=== PATIENT | female | born 1945 | race Caucasian/White ===

== ENCOUNTER 2018-01-20 17:38 | Emergency (ER) | payer MEDICARE, OTHER ==
[~2018-01-20] VITALS: Ht 152.4 cm; Wt 56.5 kg
[~2018-01-20 17:38] MED LIST: ACTO150T PO; CETI10CH PO; CIPR500T4 PO; LOPE2TAB3 PO; PRED1 PO; PRIN5TAB PO; REST0.05 OU; ZOCO40TA PO
[2018-01-20 17:48] VITALS: BP 186/95; PULSE 94; RESP 18; TEMP 98.1; O2SAT 99
[2018-01-20] MEDS ORDERED: SIMV10TA PO (18:07)
[2018-01-20] MEDS ORDERED: ZYRTEC PO (18:07)
[2018-01-20] MEDS ORDERED: LISI-519 PO (18:07)
[2018-01-20] MEDS ORDERED: FLUO.25%O LEFT EYE (18:07)
[2018-01-20] MEDS ORDERED: ASPI81CH6 CHEW (18:07)
[2018-01-20] MEDS ORDERED: RISE1TAB13 PO (18:07)
[2018-01-20] MEDS ORDERED: REST0.05 EACH EYE (18:07)
--- NOTE | 2018-01-20 18:11 | PD ---
HPI . Shoulder pain Chief Complaint: Pain: Acute or Chronic Time Seen by Provider: 17:57 Travel History International Travel<30 days: No Contact w/Intl Traveler<30days: No Traveled to known affect area: No History of Present Illness HPI Patient presents with chief complaint of left shoulder pain. Onset was about 2 weeks ago. She states that they are renting a house and that she is sleeping on a very hard bed. She sleeps on her left side. She states that she awakened from sleep a couple weeks ago with left shoulder pain. The shoulder pain has persisted. She subsequently called her primary care provider today to make an appointment. When she complained to them of left shoulder pain, they instructed her to come here for further evaluation because of his history of an abnormal EKG. She states that she has had previous right bundle branch block. In addition, she is complaining with some pain on the left side of her face. She states that her shoulder pain is very mild and rates it a 1/10. She is having trouble putting her hand behind her back to fasten her bra. She does not have any chest pain or shortness of breath. PFSH Past Medical History Cardiovascular Problems: Yes (HTN, cholesterol, RBBB) High Cholesterol: Yes Diminished Hearing: No Hypertension: Yes Respiratory: Yes (Sarcoidosis ) ?: Not Social History Alcohol Use: No Tobacco Use: No Substance Use: No Allergies-Medications (Allergen,Severity, Reaction): Coded Allergies: dapsone (Unverified Allergy, Unknown, Hives, 01/20/18) sulfamethoxazole (Unverified Allergy, Unknown, Hives, 01/20/18) trimethoprim (Unverified Allergy, Unknown, Hives, 01/20/18) Reported Meds & Prescriptions Reported Meds & Active Scripts Active Reported Risedronate 150 Mg Tab 150 Mg PO Q30D [Zyrtec] 10 Mg PO DAILY Fml Forte Opth Drops (Fluorometholone) 0.25% Susp 1 Drop LEFT EYE BID Restasis Opth (Cyclosporine Opth) 0.05% Emul 1 Drop EACH EYE BID Aspirin Low Dose (Aspirin) 81 Mg Chew 81 Mg CHEW DAILY Lisinopril 5 Mg Tab 5 Mg PO DAILY Simvastatin 10 Mg Tab 10 Mg PO HS Review of Systems Except as stated in HPI: all other systems reviewed are Neg Physical Exam Narrative GENERAL: Awake and alert and in no acute distress. SKIN: Warm and dry. HEAD: Normocephalic/atraumatic. EYES: Pupils are equal. Extraocular movements are intact. Actively NECK: Normal range of motion. CARDIOVASCULAR: Regular rate and rhythm. RESPIRATORY: Nonlabored respirations. Delayed MUSCULOSKELETAL: Left shoulder has no tenderness to palpation. She does have decreased range of motion in that she cannot put her left hand behind her back. NEUROLOGICAL: Nonfocal. PSYCHIATRIC: Appropriate mood and affect. Data Data Last Documented VS Vital Signs Date Time Temp Pulse Resp B/P (MAP) Pulse Ox O2 Delivery O2 Flow Rate FiO2 01/20/18 19:20 74 16 01/20/18 19:20 141/83 (102) 97 Room Air 01/20/18 17:48 98.1 Orders Orders Electrocardiogram (01/20/18 ) Shoulder, Complete (>2vws) (01/20/18 18:07) [facility] Medical Decision Making Medical Screen Exam Complete: Yes Emergency Medical Condition: Yes Interpretation(s) EKG shows a normal sinus rhythm with no ST segment changes. Differential Diagnosis Differential diagnosis of joint pain includes but is not limited to arthritis, gout, sprain/strain, fracture, dislocation, bursitis Narrative Course This patient presents with a chief complaint of left shoulder pain. I suspect a rotator cuff injury or possibly tendinitis. However, we will check an EKG. I have also ordered an x-ray of her shoulder. Left shoulder x-ray shows no bony abnormality. It was independently reviewed by me. The radiologist comments on an interstitial infiltrate in the left upper lobe noted on the shoulder x-ray. The patient does not have any shortness of breath, cough or fever. Diagnosis Primary Impression: Left shoulder pain Qualified Codes: M25.512 - Pain in left shoulder Patient Instructions: General Instructions, Shoulder Pain (ED) Additional Instructions: Follow-up with your primary care doctor for an MRI of your shoulder if the pain continues. Med/Other Pt SpecificInfo: Prescription(s) given Scripts Acetaminophen-Codeine (Tylenol-Codeine #3) 300-30 mg Tab 1 TAB PO Q4H Y for PAIN, #12 TAB 0 Refills Prov: oDnya Gandara MD 01/20/18 Disposition: 01 DISCHARGE HOME Condition: Stable Donya Gandara MD Jan 20, 2018 18:11
[2018-01-20 19:20] VITALS: BP 141/83; PULSE 76; RESP 16; O2SAT 97
--- NOTE | 2018-01-20 19:49 | RADRPT ---
EXAM DATE/TIME: 01/20/2018 18:26 [facility] COMPARISON: No previous studies available for comparison. INDICATIONS : Left shoulder pain, no known trauma. MEDICAL HISTORY : None. SURGICAL HISTORY : None. ENCOUNTER: Initial ACUITY: 2 weeks PAIN SCORE: 4/10 LOCATION: Left shoulder. FINDINGS: Multiple view examination of the left shoulder demonstrates no evidence of fracture or dislocation. The glenohumeral and acromioclavicular joints are maintained. There is normal range of motion betwee n internal and external rotation. Bony mineralization is normal. CONCLUSION: 1. No acute findings of the left shoulder. There is some airspace and interstitial disease in the upp er left lung. Bryan Sanchez MD on January 20, 2018 at 19:47 Board Certified Radiologist. This report was verified electronically.
[2018-01-20] MEDS ORDERED: TYLETAB34 PO (19:56)
[2018-01-21] MEDS ORDERED: CETI-1 PO (10:36)
--- NOTE | 2018-01-21 22:37 | EKG ---
Date Performed: 01/20/2018 Time Performed: 18:18:03 PTAGE: 73 years EKG: Sinus rhythm NORMAL ECG PREVIOUS TRACING : 01/13/2016 10.41 Compared to prior tracing, narrow complex now present DOCTOR: Jesus Villalpando Interpretating Date/Time 01/21/2018 22:35:45
== END 2018-01-20 20:11 | disposition home or self-care (01) ==
LOC: PHED 17:38
DX: M25.512 Pain in left shoulder (principal); E78.00 Pure hypercholesterolemia, unspecified; I10 Essential (primary) hypertension; D86.9 Sarcoidosis, unspecified
CPT/HCPCS: 73030; 93005; 99284